=== PATIENT | female | born 1995 | race Caucasian/White ===

== ENCOUNTER 2018-02-06 00:56 | Emergency (ER) | payer MEDICAID, OTHER ==
[~2018-02-06] VITALS: Ht 170.2 cm; Wt 48.0 kg
[2018-02-06 00:58] VITALS: BP 132/85
[2018-02-06] MEDS ORDERED: IBUPROFEN 600 MG TABLET ONE (01:34)
[2018-02-06] MEDS ORDERED: L.E.T SOLUTION TP ONE (01:43)
[2018-02-06 01:58] LABS: MICROSCOPIC AUTO
[2018-02-06] MEDS ORDERED: IBUPROFEN 200 MG TABLET PO ONE (02:00)
[2018-02-06] MEDS ORDERED: LIDOCAINE-MPF 1%, 5ML ONE (02:03)
[2018-02-06 02:06] LABS: CULTURE INDICATED? NO
== END 2018-02-06 02:47 | disposition home or self-care (01) ==
LOC: ED 02:41
DX: N76.4 Abscess of vulva (principal)
CPT/HCPCS: 56405; 81001; 87070; 87075; 87205; 87491; 87591; 99284

== ENCOUNTER 2018-06-15 10:58 | Emergency (ER) | payer SELFPAY ==
[~2018-06-15] VITALS: Ht 170.2 cm; Wt 49.4 kg
[2018-06-15 11:47] LABS: BASOPHILS # (AUTO) 0.04 x10^3/uL (0-0.1); BASOPHILS % (AUTO) 1 % (0-1); EOSINOPHILS # (AUTO) 0.04 x10^3/uL (0-0.4); EOSINOPHILS % (AUTO) 1 % (1-7); LYMPHOCYTES # (AUTO) 2.09 x10^3/uL (1-3.4); LYMPHOCYTES % (AUTO) 29 % (22-44); MD NO; MEAN CORPUSCULAR HEMOGLOBIN 30.2 pg (27.0-34.8); MEAN CORPUSCULAR HGB CONC 33.3 g/dL (32.4-35.8); MEAN CORPUSCULAR VOLUME 90.6 fL (80-100); MONOCYTES # (AUTO) 0.64 x10^3/uL (0.2-0.8); MONOCYTES % (AUTO) 9 % (2-9); NEUTROPHILS # (AUTO) 4.53 x10^3/uL (1.8-6.8); NEUTROPHILS % (AUTO) 62 % (42-75); PLATELET COUNT 319 x10^3/uL (130-400); RED BLOOD COUNT 5.16 x10^6/uL (3.82-5.3)
[2018-06-15 11:58] LABS: ALBUMIN 3.4 g/dL (3.4-5.0); CALCIUM 8.8 mg/dL (8.5-10.1); CHLORIDE 111 mmol/L (98-107)
[2018-06-15 12:04] LABS: CREATININE 0.78 mg/dL (0.55-1.02)
[2018-06-15 12:42] LABS: ANION GAP 6 mmol/L (5-15)
--- NOTE | 2018-06-15 13:15 | NUR ---
PT TO ROOM FROM LOBBY.
--- NOTE | 2018-06-15 13:32 | NUR ---
PT. IS A & O X 4 WITH C/O VAGINAL BLEEDING. PT. STATES A MODERATE AMOUNT. PT. HAS NO OTHER COMPLAINTS. PT. IS PINK, WARM AND DRY. LUNGS ARE CTA. MM ARE PINK AND MOIST WITH PULSES +2 THROUGHOUT. PT. IS RESTING WITHOUT CONCERNS. VSS.
[2018-06-15 15:00] VITALS: BP 110/61
== END 2018-06-15 15:06 | disposition home or self-care (01) ==
LOC: ED 14:21
DX: N93.8 Other specified abnormal uterine and vaginal bleeding (principal); Z90.49 Acquired absence of other specified parts of digestive tract; F17.200 Nicotine dependence, unspecified, uncomplicated
CPT/HCPCS: 36415; 76830; 80048; 82040; 84703; 85025; 93005; 99284

== ENCOUNTER 2018-07-25 20:14 | Emergency (ER) | payer SELFPAY ==
[~2018-07-25] VITALS: Ht 170.2 cm; Wt 50.0 kg
[2018-07-25 20:30] VITALS: BP 131/80
[2018-07-25 21:36] LABS: HCG UR SG 1.024 (1.003-1.030)
== END 2018-07-25 21:54 | disposition home or self-care (01) ==
LOC: ED 21:51
DX: Z32.01 Encounter for pregnancy test, result positive (principal); O99.331 Smoking (tobacco) complicating pregnancy, first trimester; Z3A.01 Less than 8 weeks gestation of pregnancy
CPT/HCPCS: 81025; 99283

== ENCOUNTER 2020-01-27 08:15 | Emergency (ER) | payer MEDICAID, OTHER ==
[~2020-01-27] VITALS: Ht 172.7 cm; Wt 68.8 kg
[2020-01-27 08:17] VITALS: BP 122/79
[2020-01-27] MEDS ORDERED: ONDANSETRON ODT 8 MG ONE (08:49)
[2020-01-27] MEDS ORDERED: ONDANSETRON ODT 8 MG PO ONE (09:00)
--- NOTE | 2020-01-27 09:16 | NUR ---
Patient given discharge instructions and they have confirmed that they understand the instructions. Patient ambulatory with steady gait.
== END 2020-01-27 09:17 | disposition home or self-care (01) ==
LOC: ED 08:39
DX: R11.2 Nausea with vomiting, unspecified (principal); R10.30 Lower abdominal pain, unspecified
CPT/HCPCS: 99283; Q0162